=== PATIENT | male | born 1960 | race Caucasian/White ===

== ENCOUNTER 2019-07-28 03:15 | Emergency (ER) | payer MEDICAID ==
[~2019-07-28] VITALS: Ht 180.3 cm; Wt 68.0 kg
[2019-07-28 03:18] VITALS: BP 135/91
--- NOTE | 2019-07-28 03:57 | NUR ---
PT STATES RECENT ORAL SURGERY STATES "FEELING LIKE IM GOING IN CIRCLES". DENIES ANY SPECIFIC COMPLAINTS, WHEN ASKED WHAT BROUGHT YOU IN TODAY STATES "I DONT EVEN KNOW". ALL SAFETY MEASURES IN PLACE.
== END 2019-07-29 04:45 | disposition home or self-care (01) ==
LOC: ED 04:39
DX: R20.2 Paresthesia of skin (principal); F17.200 Nicotine dependence, unspecified, uncomplicated; Z72.9 Problem related to lifestyle, unspecified
CPT/HCPCS: 93005; 99283